=== PATIENT | female | born 1985 | race American Indian/Alaskan Native ===

== ENCOUNTER 2016-05-27 16:24 | Inpatient (IN) | payer OTHER, MEDICAID ==
--- NOTE | 2016-05-27 16:42 | Procedure Note ---
OB Delivery Note - Delivery Date of Delivery: 05/27/16 Surgeon: BERNABE LEE Estimated blood loss: <100cc - Vaginal Delivery presentation: vertex Delivery position: OA Intrapartum events: precipitous labor- <3hr Delivery induction: none Delivery monitor: none Route of delivery: Delivery placenta: spontaneous Delivery cord: 3 umbilical vessels Episiotomy: none Delivery laceration: none Anesthesia: none - Infant A at 1 minute: 8 at 5 minutes: 9 Gender: Female (Del @ 16:15, weight is 7#2 or 3244 g)
[2016-05-27] MEDS ORDERED: TYLENOL PO PRN (16:45)
[2016-05-27] MEDS ORDERED: MILK OF MAGNESIA PO PRN (16:45)
[2016-05-27] MEDS ORDERED: DERMOPLAST TP PRN (16:45)
[2016-05-27] MEDS ORDERED: PHENERGAN PO PRN (16:45)
[2016-05-27] MEDS ORDERED: ANUCORT-HC PR PRN (16:45)
[2016-05-27] MEDS ORDERED: DULCOLAX PR PRN (16:45)
[2016-05-27] MEDS ORDERED: PHENERGAN PR PRN (16:45)
[2016-05-27] MEDS ORDERED: ZOFRAN IV PRN (16:45)
[2016-05-27] MEDS ORDERED: NORCO 5/325 PO PRN (16:45)
--- NOTE | 2016-05-27 16:45 | History and Physical Report ---
History of Present Illness Date of examination: 05/27/16 Date of admission: 05/27/16 16:24 Chief complaint: PPt delivery History of present illness: 30-year-old 001 at 38 wks presents in active labor, she is a drop-in patient with care at another facility. Patient fully dilated and arrival, she subsequently delivered vaginally. Past History Past Medical History: no pertinent history Past Surgical History: no surgical history - Obstetrical History Expected Date of Delivery: 06/10/16 Actual Gestation: 38 Week(s) 0 Day(s) : 2 Para: 1 Medications and Allergies Home Medications Medication Instructions Recorded Confirmed Last Taken Type HYDROcodone/APAP 5-325 [[place] 1 each PO Q6HR PRN #10 tablet 05/27/16 Unknown Rx 5/325] Ibuprofen [Motrin 600 MG tab] 600 mg PO Q8H PRN #30 tablet 05/27/16 Unknown Rx Multivitamin with Iron 1 each PO DAILY #30 tablet 05/27/16 Unknown Rx [Multivitamins with Iron] Review of Systems Cardiovascular: no chest pain Respiratory: no excessive sputum, no shortness of breath, no dyspnea on exertion Gastrointestinal: no abdominal pain, no nausea, no vomiting Genitourinary: no vaginal bleeding - Physical Exam Abdomen: Positive: normal appearance, soft. Negative: distention, tenderness, guarding, rigidity Genitourinary (Female): Positive: normal external genitalia Extremities: Positive: normal Results All other labs normal. Assessment and Plan PPD# 0: s/p PPT delivery -stable P: -Routine care -Anticipate discharge in 24-48 hours - Patient Problems (1) 39 weeks gestation of Current Visit: Yes Status: Acute (2) Precipitous delivery Current Visit: Yes Status: Acute
[2016-05-27] MEDS ORDERED: BENADRYL PO PRN (18:13)
[2016-05-27] MEDS ORDERED: TUCKS PAD TP PRN (18:17)
[2016-05-27] MEDS ORDERED: SODIUM CHLORIDE FLUSH SYRINGE 10 ML IV SCH (19:00)
[2016-05-27] MEDS ORDERED: PITOCin/NS 20 UNIT/1000ML DRIP 20 UNIT/1,000 ML BAG IV SCH (19:00)
[2016-05-27] MEDS: MOTRIN PO SCH ×2 (19:05→23:38)
[2016-05-27] MEDS: COLACE PO SCH (23:38)
[2016-05-27] MEDS: FEOSOL PO SCH (23:38)
[2016-05-28] MEDS: SENOKOT S PO SCH (02:31)
[2016-05-28 06:03] LABS: Hemoglobin 12.1 gm/dl (10.1-14.3)
[2016-05-28] MEDS: LANSINOH TP PRN (06:03)
[2016-05-28] MEDS: MOTRIN PO SCH ×4 (06:03→23:30)
[2016-05-28] MEDS ORDERED: PRENATAL VITAMIN PO SCH (10:00)
[2016-05-28] MEDS: FEOSOL PO SCH ×2 (10:05→21:41)
[2016-05-28] MEDS: COLACE PO SCH ×2 (10:05→21:41)
--- NOTE | 2016-05-28 12:55 | Progress Note ---
Assessment and Plan PPD# 1: s/p PPT delivery -stable P: -Continue routine care -Anticipate discharge in 24-48 hours - Patient Problems (1) 39 weeks gestation of Current Visit: Yes Status: Acute (2) Precipitous delivery Current Visit: Yes Status: Acute Subjective - Subjective Date of service: 05/28/16 Principal diagnosis: PPD # 1 s/p Interval history: Patient seen and examined, stable doing well. No issues Patient reports: appetite normal, voiding normally, pain well controlled, flatus , ambulating normally, no dizzy ambulation [place]: doing well Objective - Vital Signs Latest vital signs: Vital Signs Temp Pulse Pulse Resp BP BP 05/28/16 09:08 97.6 F 82 20 96/53 05/28/16 05:00 97.7 F 71 20 106/59 05/28/16 01:30 98.2 F 72 20 111/54 05/27/16 20:37 98.5 F 81 20 104/60 05/27/16 20:05 97.8 F 94 H 14 105/63 05/27/16 19:59 85 106/51 05/27/16 19:05 18 05/27/16 18:09 81 98/51 05/27/16 18:05 81 18 98/51 05/27/16 18:04 76 102/53 05/27/16 17:50 78 18 101/53 05/27/16 17:49 78 101/53 05/27/16 17:35 88 18 110/59 05/27/16 17:34 88 110/59 05/27/16 17:26 88 109/58 05/27/16 17:20 88 18 109/58 05/27/16 17:04 86 107/55 05/27/16 17:00 86 18 107/55 05/27/16 16:44 92 H 116/54 Intake and Output 05/27/16 05/28/16 05/28/16 22:59 06:59 14:59 Intake Total 1280 360 120 Output Total 900 800 600 Balance 380 -440 -480 Intake: IV 800 PITOCin/NS 20 UNIT/1000ML 800 DRIP 20 unit In 1,000 ml @ 250 mls/hr IV TITR HUGH Rx#:[id number] Oral 240 360 120 Intake, Free Water 240 Output: Urine 900 800 600 Void 900 800 600 Other: Total, Intake Amount 240 240 120 Total, Output Amount 400 400 600 Weight 68.039 kg Estimated Blood Loss 100 - Exam Abdomen: Present: normal appearance, soft. Absent: distention, tenderness, guarding, rigidity Uterus: Present: fundal height below umbilicus. Absent: tenderness Extremities: Present: normal
--- NOTE | 2016-05-28 12:58 | Discharge Summary ---
Providers - Providers Date of Admission: 05/27/16 16:24 Date of discharge: 05/28/16 Attending physician: BERNABE LEE Primary care physician: BERNABE LEE Hospitalization Reason for admission: active labor Delivery: Episiotomy: none Laceration: none Other procedures: none Discharge diagnosis: IUP at term delivered [place] baby: female Hospital course: 30-year-old 001 at 38 wks presents in active labor, she is a drop-in patient with care at another facility. Patient fully dilated and arrival, she subsequently delivered vaginally. Uncomplicated hospital course Condition at discharge: Good Disposition: DISCHARGED TO HOME OR SELFCARE - Discharge Diagnoses (1) 39 weeks gestation of Status: Acute (2) Precipitous delivery Status: Acute Plan - Discharge Medications Prescriptions: HYDROcodone/APAP 5-325 [[place] 5/325] 1 each PO Q6HR PRN #10 tablet PRN Reason: Pain Ibuprofen [Motrin 600 MG tab] 600 mg PO Q8H PRN #30 tablet PRN Reason: Pain Multivitamin with Iron [Multivitamins with Iron] 1 each PO DAILY #30 tablet - Provider Discharge Summary Activity: no sex for 6 weeks, no heavy lifting 4 weeks, no strenuous exercise Diet: routine Additional instructions: [] Smoking cessation referral if applicable(refer to patient education folder for contact #) [] Refer to [facility] Booklet Call your doctor immediately for: * Fever > 100.5 * Heavy vaginal bleeding ( >1 pad per hour) * Severe persistent headache * Shortness of breath * Reddened, hot, painful area to leg or breast * Drainage or odor from incision. * Keep incision clean and dry at all times and follow doctor's instructions regarding bathing/showering - Follow up plan Follow up: BERNABE LEE MD [Primary Care Provider] - 6 Weeks
[2016-05-29] MEDS: MOTRIN PO SCH (06:19)
[2016-05-29] MEDS: LANSINOH TP PRN (06:21)
[2016-05-29] MEDS: SENOKOT S PO SCH (06:23)
[2016-05-29 15:20] VITALS: BP 102/56
== END 2016-05-29 13:05 | disposition home or self-care (01) | DRG 775 ==
LOC: LD 16:24 → OB 20:04
PROVIDERS: ADMIT Obstetrics & Gynecology Gynecology; ATTEND Obstetrics & Gynecology Gynecology
PROC: 10E0XZZ Delivery of Products of Conception, External Approach (ICD-10-PCS; principal; 2016-05-27)
PROC: 30233S1 Transfusion of Nonautologous Globulin into Peripheral Vein, Percutaneous Approach (ICD-10-PCS; 2016-05-28)
DX: O62.3 Precipitate labor (principal); Z37.0 Single live birth; Z3A.38 38 weeks gestation of pregnancy
CPT/HCPCS: 36415; 85014; 85018; 85461; 86850; 86870; 86900; 86901; A6250; J2790